=== PATIENT | female | born 1985 | race African-American/Black ===

== ENCOUNTER 2016-12-12 16:07 | Emergency (ER) | payer BC | END 2016-12-12 17:00 | disposition home or self-care (01) | LOC: ER 16:07 | DX: S46.912A Strain of unspecified muscle, fascia and tendon at shoulder and upper arm level, left arm, initial encounter (principal); F17.200 Nicotine dependence, unspecified, uncomplicated; Z88.0 Allergy status to penicillin; Z91.041 Radiographic dye allergy status; X58.XXXA Exposure to other specified factors, initial encounter | CPT/HCPCS: 93005; 96372; 99283 ==